=== PATIENT | female | born 1985 | race American Indian/Alaskan Native ===

== ENCOUNTER 2024-07-13 15:28 | Emergency (ER) | payer MEDICAID, SELFPAY ==
[2024-07-13] VITALS (9 sets, daily range): BP systolic 95–142; BP diastolic 57–72; PULSE 61–79; RESP 15–20; TEMP 36.8–37; O2SAT 96–100; BMI 23.0
--- NOTE | 2024-07-13 16:37 | PD.EDRME ---
Rapid Medical Screening Exam RME Arrival date/time: 07/13/24 15:28 39-year-old female reports with complaints of low blood iron Chief Complaint: Recheck/Abnormal Lab/Rx Time Seen by Provider: 07/13/24 16:07 Vital signs: Vital Signs Temperature 98.5 F 07/13/24 16:29 Pulse Rate 75 07/13/24 16:29 Respiratory Rate 18 07/13/24 16:29 Blood Pressure 108/65 07/13/24 16:29 Pulse Oximetry (%) 97 07/13/24 16:29 Oxygen Delivery Method Room Air 07/13/24 16:29
[2024-07-13 16:54] LABS: Basophils # (Auto) 0.1 Thou/mm3 (0.0-0.2); Basophils % (Auto) 1 % (0-2.5); Eosinophils # (Auto) 0.1 Thou/mm3 (0.0-0.5); Eosinophils % (Auto) 1 % (0-10); Hematocrit 22.6 % (36.0-46.0); Immature Granulocytes % (Auto) 0 % (0-0); Immature Granulocytes Auto 0.01 Thou/mm3 (0.00-0.00); Lymphocytes # (Auto) 2.5 Thou/mm3 (1.0-4.8); Lymphocytes % (Auto) 40 % (10-50); Mean Corpuscular HGB Conc 26.5 g/dl (31.0-37.0); Mean Corpuscular Hemoglobin 16.1 pg (25.0-35.0); Mean Corpuscular Volume 61 fL (80-100); Monocytes # (Auto) 0.6 Thou/mm3 (0.0-0.8); Monocytes % (Auto) 9 % (0-12); Neutrophils # (Auto) 3.1 Thou/mm3 (1.8-7.7); Neutrophils % (Auto) 49 % (37-80); Nucleated Red Blood Cell % 0 /100 WBC (0); Platelet Count 573 Thou/mm3 (140-440); RDW Standard Deviation 43.8 fL (36.4-46.3); Red Blood Count 3.72 Miln/mm3 (4.00-5.20); White Blood Count 6.3 Thou/mm3 (3.6-11.0)
[2024-07-13 17:25] LABS: HCG,Qualitative Serum Negative
--- NOTE | 2024-07-13 18:45 | EDNOTE_ITS ---
ED Recheck Abnl Lab Rx-RME/HPI General Chief Complaint: Recheck/Abnormal Lab/Rx Stated Complaint: LOW HGB Time Seen by Provider: 07/13/24 16:07 Source: patient Arrival date/time: 07/13/24 15:28 Mode of arrival: ambulatory Limitations: no limitations RME / HPI RME / HPI narrative: DR CALI MAIN ED EVALUATION: 39-year-old female presented to the emergency department on an outpatient basis after being referred by her primary care provider for evaluation of a low hemoglobin level. The patient herself reports feeling generally well without any specific complaints of pain, discomfort, or other associated symptoms. She denies any black/bloody stools, hematuria, abnormal vaginal bleeding or any other associated symptoms. Related Data Previous Rx's ?Medication ?Instructions ?Recorded hydrocodone 5 mg-acetaminophen 325 1 tab PO Q8H PRN pa in #9 tabs 05/30/23 mg tablet Allergies Allergy/AdvReac Type Severity Reaction Status Date / Time No Known Allergies Allergy Verified 05/27/23 04:41 Review of Systems Review of Systems Systems Reviewed: All systems reviewed, normal except as documented Past Medical History Past Medical History NEUROLOGIC: Negative Neurological Disorders or Seizures CARDIAC: Negative Cardiac Disorders or Congestive Heart Failure RESPIRATORY: Negative Chronic Obstructive Pulmonary Disease (COPD) or Asthma GASTROINTESTINAL: Negative Gastrointestinal Disorders, Hepatitis or Colorectal Cancer GENITOURINARY: Negative Genitourinary Disorders, Renal Disease or Prostate Cancer REPRODUCTIVE: Positive Previous Pregnancies; Negative Breast Cancer or Testicular Cancer MUSCULOSKELETAL: Negative Musculoskeletal Disorders or Bone Cancer ENDOCRINE: Negative Endocrine Disorders, Diabetes Mellitus Type 1 or Diabetes Mellitus Type 2 HEMATOLOGIC: Positive Blood Disorders and Anemia; Negative Sickle Cell Disease PSYCHO/SOCIAL: Positive Recreational Drug Use OTHER HISTORY: Positive Hospitalization, Blood Transfusions and Chicken Pox; Negative Autoimmune Disease, Down Syndrome, Developmental Delay, Falls, Blood Transfusion Reaction, Anesthesia Reactions, Human Immunodeficiency Virus (HIV), Measles, Mumps, Rubella ([place] Measles), Pertussis, Clostridium Difficile, Cancer, Breast Cancer, Cervical Cancer, Colorectal Cancer, Lung Cancer, Ovarian Cancer, Prostate Cancer or Testicular Cancer Family History FAMILY HISTORY: Negative Family Psychiatric Problems, Family Respiratory Disorders, Family Cardiac Disorders, Family Gastrointestinal Problems, Family Cancer, Family Surgery or Family Anesthesia Reaction Surgical History SURGICAL: Positive Section Social History SMOKING STATUS: Light (< 1 pack/day) SUBSTANCE USE: methamphetamine ED Exam Narrative Physical exam: GENERAL APPEARANCE: alert and oriented x 4, well-developed, well-nourished, no acute distress VITALS: All vitals were reviewed and the pulse ox is 100% on room air, which is normal according to my interpretation. HEENT: Normocephalic, atraumatic; pupils equal, round, reactive to light; EOMI; mucous membranes pink, moist; oropharynx clear NECK: Supple LUNGS: CTABL; no wheezes, no rales, no rhonchi HEART: Regular rate, regular rhythm; normal S1, S2; no murmurs ABDOMEN: non distended; normal BS; soft, no tenderness, no guarding, no rebound; no masses, no organomegaly, no hernia BACK: no CVA tenderness EXTREMITIES: atraumatic; no edema NEUROLOGIC: awake; alert and oriented x4; cranial nerves II-XII grossly intact; no focal sensory or motor deficits PSYCHIATRIC: appropriate mood and affect SKIN: warm, dry, mild pallor; no rashes General Limitations: Present no limitations Course Quality Measures none Orders Category Date Time Status Transfuse,blood/blood products NOW Care 07/13/24 19:22 Completed CBC Stat Lab 07/13/24 16:41 Completed CMP [Comprehensive Metabolic Panel] Stat Lab 07/13/24 23:48 Completed HCG,Qualitative Serum Stat Lab 07/13/24 16:41 Completed Red Blood Cells Stat Lab 07/13/24 16:41 Completed Type and Screen Stat Lab 07/13/24 16:41 Completed Vital Signs Vital signs: Vital Signs Temperature 98.5 F 07/13/24 16:29 Pulse Rate 75 07/13/24 16:29 Respiratory Rate 18 07/13/24 16:29 Blood Pressure 108/65 07/13/24 16:29 Pulse Oximetry (%) 97 07/13/24 16:29 Oxygen Delivery Method Room Air 07/13/24 16:29 Recheck / Abnormal Lab / Rx MDM Narrative MDM Narrative:: Scribe Attestation: I, Louann Lala, am scribing for and in the presence of Dr. Cali. Provider Notation: Although this document has been carefully reviewed, there may still be some phonetic and other typographical errors. These errors are purely grammatical due to imperfections in the software program and should not be construed in any way to compromise the substance of the patient's medical care during this visit. Patient data External records reviewed:: [facility] previous records Clinical information provided by:: patient Social determinants that could affect healthcare access:: none Patient has the following chronic illnesses:: see PMH How is presenting disease/condition affected by chronic disease/condition?: uneffected by Evaluation data The following diagnostics were reviewed and interpreted by me:: lab results Lab and/or radiology exams considered but not ordered:: na Interpretation Summary: RBC 3.72 Hgb 6.0 Hct 22.6 Medications / Prescriptions Medications or Prescriptions considered but not ordered:: na Medication administrations:: as above Consultations Consultation(s) initiated? (list below): No Diagnosis Recheck Differential Diagnosis: other (anemia, chronic disease, iron deficiency) Most likely diagnosis given after review of the tests above:: see below Admission Indicated Admission indicated?: not indicated Admission Request Was there a request for admission?: No Disposition Plan Disposition Plan: Discharge Discharge Attestation Discharge Attestation: The patient and all family members were given an opportunity to ask questions and understood the discharge instructions. Discharge instructions specifically effects, indications for sooner follow up or return to the emergency department, and the expected course of current diagnosis. Patient condition: Stable Discharge Plan Plan Patient Disposition: HOME (Self Care) Prescriptions/Referrals Prescriptions/Med Rec: No Action hydrocodone-acetaminophen 5-325 mg tablet 1 tab PO Q8H MDD 3 tabs PRN (Reason: pain) Qty: 9 0RF Referrals: Paulo Mike PA-C [Primary Care Provider] - In 1 week Problem List Clinical Impression: Symptomatic anemia Patient/Caregiver Discharge Instructions Education Materials: ED Anemia Type Not Specified Additional Instructions: Follow up with your doctor for further workup of anemia Print Language: U[place] Stand Alone Forms: Chrissy Award Info., Patient Portal Info Letter
[2024-07-14 00:02] VITALS: BP 129/79; PULSE 62; RESP 15; TEMP 36.7; O2SAT 100
[2024-07-14 00:16] LABS: Alanine Aminotransferase 10 U/L (10-49); Albumin/Globulin Ratio 1.2 (1.2-2.2); Alkaline Phosphatase 64 U/L (46-116); Anion Gap 6 (7-16); Aspartate Amino Transferase 14 U/L (0-34); BUN/Creatinine Ratio 24 Ratio (12-20); Blood Urea Nitrogen 12 mg/dL (9-23); Calcium 8.8 mg/dL (8.3-10.6); Calcium (Corrected) 8.8 mg/dL (8.5-10.1); Carbon Dioxide 25.1 mMol/L (20.0-31.0); Chloride 109 mMol/L (98-107); Creatinine (Component) 0.5 mg/dL (0.6-1.3); Estimated Creatinine Clearance 115.1 mL/min (>60); Globulin 3.4 gm/dL (2.3-3.5); Glucose 89 mg/dL (74-106); Osmolality,Calculated 278 (275-295); Potassium 4.1 mMol/L (3.4-5.1); Sodium 140 mMol/L (136-145); Total Protein 7.4 gm/dL (5.7-8.2); eGFR > 60 See Note
[2024-07-14 01:14] VITALS: BP 138/89; PULSE 78; RESP 18; TEMP 36.7
[2024-07-14 01:15] VITALS: BP 138/89; PULSE 65; RESP 16; TEMP 36.7; O2SAT 100
== END 2024-07-14 01:27 | disposition home or self-care (01) ==
PROVIDERS: Physician Assistant; Emergency Provider Emergency Medicine; PCP Physician Assistant
DX: D64.9 Anemia, unspecified (principal)
CPT/HCPCS: 36415; 36430; 80053; 81001; 84703; 85025; 86850; 86900; 86901; 86923; 99285; P9016